=== PATIENT | female | born 1955 | race Caucasian/White ===

== ENCOUNTER 2017-03-14 06:36 | Emergency (ER) | payer OTHER ==
--- NOTE | 2017-03-14 07:24 | ER PHYSICIAN DOCUMENTATION ---
Physician Documentation [facility] Name:Tomasa Fishman Age:61 yrs Sex:Female :1955 Arrival Date:03/14/2017 Time:06:36 Bed6 Private MD: Rangel Hammer Disposition: 03/14/17 07:10 Discharged to Home/Self Care. Impression: Wrist Sprain. - Condition is Good. - Discharge Instructions: WRIST SPRAIN, WRIST SPLINT, Velcro, Bone Fracture - FRACTURE, Navicular (wrist), Suspected. - Prescriptions for Naprosyn 500 mg Oral tablet - take 1 tablet by ORAL route every 12 hours; 60 tablet. Tramadol 50 mg Oral Tablet - take 1 tablet by ORAL route every 8 hours as needed; 12 tablet. - Medical Reconciliation form form. - Follow up: Private Physician; When: 7 - 10 days; Reason: Recheck today's complaints. - Problem is new. - Symptoms are unchanged. HPI: 03/14 06:55 This 61 yrs old Female presents to ER via Walk In with complaints of Wrist sc Pain - LEFT. 06:55 The patient or guardian reports injury. The complaints affect the left wrist diffusely, sc the patient's dominant side (right). Context: The problem was sustained outdoors, resulted from a fall, on an outstretched hand. Onset: The symptom(s)/episode began/occurred last night. Associated signs and symptoms: The patient has no apparent associated signs or symptoms. old non-operative cyst over left radial artery. Historical: - Allergies: Codeine; Dilaudid; - Home Meds: 1. Amitriptyline Oral - PMHx: Headaches; - PSHx: back; - Tetanus: < 10 years. - Ebola Screening: : Patient denies exposure to infectious person. Patient denies travel to an Ebola-affected area in the 21 days before illness onset. . - Immunization history: Flu Vaccine < 1 year. - Social history: Smoking status: Patient states was never smoker of tobacco. Patient/guardian denies using alcohol. ROS: 06:56 Constitutional: Negative for fever, chills, and weight loss. sc Eyes: Negative for injury, pain, redness, and discharge. Neck: Negative for injury, pain, and swelling. Back: Negative for injury and pain. Skin: Negative for injury, rash, and discoloration. 06:56 Neuro: Negative for headache, weakness, numbness, tingling, and seizure. sc 06:56 MS/extremity: Positive for injury or acute deformity, decreased range of motion, pain, Negative for paresthesias. Exam: 06:56 Hand exam: Exam is positive for snuff box/scaphoid tenderness, swelling, tenderness, sc ROM: limited active range of motion due to pain, limited passive range of motion due to pain, Circulation is intact in all extremities. sensation intact. Constitutional: This is a well developed, well nourished patient who is awake, alert, and in no acute distress. Head/Face: Normocephalic, atraumatic. Eyes: Pupils equal round and reactive to light, extra-ocular motions intact. Lids and lashes normal. Conjunctiva and sclera are non-icteric and not injected. Cornea within normal limits. Periorbital areas with no swelling, redness, or edema. 06:56 Neuro: Awake and alert, GCS 15, oriented to person, place, time, and situation. Cranial nerves II-XII grossly intact. Motor strength 5/5 in all extremities. Sensory grossly intact. Cerebellar exam normal. Normal gait. Vital Signs: 07:02 BP 117 / 69; Pulse 75; Resp 15; Temp 97.9(O); Pulse Ox 95% on R/A; Height 5 ft. 5 in. lb (165.10 cm); Pain 8/10; MDM: 06:41 Patient medically screened. ks 07:10 Data reviewed: and as a result, I will discharge patient. Counseling: I had a detailed ks discussion with the patient and/or guardian regarding: the historical points, exam findings, and any diagnostic results supporting the discharge/admit diagnosis, radiology results, the need for outpatient follow up, for a referral to a specialist. 07:13 Patient medically screened. be 03/14 07:35 Order name: WRIST; [place] [id number] EDMS 03/14 06:50 Order name: ORTHO: Ice Pack; Complete Time: 07:24 sc 03/14 07:08 Order name: ORTHO: Splint; Complete Time: 07:24 ks 03/14 07:10 Order name: ORTHO: Shoulder Immobilizer; Complete Time: 07:24 ks Dispensed Medications: No medications were administered Signatures: Kori Lemus Maco Vogel RN, MD MD sc Elliott, Brian, MD MD be Bollock, Lynda lb
--- NOTE | 2017-03-14 07:24 | ER NURSING DOCUMENTATION ---
Nurse's Notes [facility] Name:Tomasa Fishman Age:61 yrs Sex:Female :1955 Arrival Date:03/14/2017 Time:06:36 Bed6 Private MD: Diagnosis:Wrist Sprain Presentation: 03/14 06:54 Transition of care: Camp. Notified ED Physician of Dr. Akhtar notified. Time Last Known lb Well for the patient was left wrist injury. 06:54 Acuity: TOMEKA 4 lb 06:54 Method Of Arrival: Walk In lb Triage Assessment: 06:55 General: Appears in no apparent distress, Behavior is appropriate for age, pleasant. lb Pain: Complains of pain in left hand Pain does not radiate. Pain currently is 8 out of 10 on a pain scale. Historical: - Allergies: Codeine; Dilaudid; - Home Meds: 1. Amitriptyline Oral - PMHx: Headaches; - PSHx: back; - Tetanus: < 10 years. - Ebola Screening: : Patient denies exposure to infectious person. Patient denies travel to an Ebola-affected area in the 21 days before illness onset. . - Immunization history: Flu Vaccine < 1 year. - Social history: Smoking status: Patient states was never smoker of tobacco. Patient/guardian denies using alcohol. Screenin:56 Infectious Disease Risk None. Abuse screen: Denies threats or abuse. Denies injuries lb from another. Nutritional screening: No deficits noted. Assessment: 06:56 See Triage Assessment done by same RN. lb Vital Signs: 07:02 BP 117 / 69; Pulse 75; Resp 15; Temp 97.9(O); Pulse Ox 95% on R/A; Height 5 ft. 5 in. lb (165.10 cm); Pain 8/10; ED Course: 06:38 Patient arrived in ED. jt 06:49 Maco Akhtar MD is Attending Physician. sc 06:54 Shayna Ovalle is Primary Nurse. lb 06:54 Triage completed. lb 06:[address] Akhtar notified. lb 06:56 Valuables Remains with patient Patient has correct armband on for positive lb identification. 07:09 Port Xray Completed. mr 07:12 Attending Physician role handed off by Maco Akhtar MD be 07:12 Rangel Kim MD is Attending Physician. be 07: Velcro wrist splint applied to left wrist. Sling applied to left arm. st Administered Medications: No medications were administered Outcome: 07:10 Discharge ordered by . de 07:23 Discharged to home ambulatory. 07:23 Condition: improved 07:23 Instructed on discharge instructions, follow up and referral plans. medication usage, Prescriptions given X 2. 07:24 Patient left the ED. 03/15 16:55 Discharge F/U Call: Unable to reach: left voicemail: lc Signatures: Kori Lemus, RN RN Alena Parisi RN RN Maco Overton MD MD sc Elliott, Brian, MD MD be Tennant, Shayna Silva Michael mr
--- NOTE | 2017-03-14 07:33 | RADIOLOGY REPORT ---
HISTORY: Fall. Pain. COMPARISON: None available. FINDINGS: 4 views of the wrist obtained. No acute fracture or dislocation. No scapholunate or lunotriquetral d issociation. Small cortical irregularity radial aspect distal radius may be related to remote trauma. No significant degenerative changes. Mild to moderate dorsal soft tissue swelling. IMPRESSION: No acute fracture or dislocation. Final Electronic Signature: This report was electronically signed by Christophe Sparks MD, FACR on 03/14/2017 7:31 AM. janette /
== END 2017-03-14 07:24 | disposition home or self-care (01) ==
LOC: ER 06:36
DX: S63.502A Unspecified sprain of left wrist, initial encounter (principal); W18.30XA Fall on same level, unspecified, initial encounter; Y93.01 Activity, walking, marching and hiking
CPT/HCPCS: 99283